=== PATIENT | male | born 1980 | race Caucasian/White ===

== ENCOUNTER 2018-09-18 12:45 | Outpatient (CLI) | payer OTHER ==
--- NOTE | 2018-09-18 15:48 | MRI Report ---
Reason: LOW BACK PAIN Procedure Date: 09/18/2018 Accession Number: [id number] / [id number] Procedure: MRI - Lumbar Spine W/O CPT Code: FULL RESULT: EXAM: MRI LUMBAR SPINE WITHOUT CONTRAST EXAM DATE: 09/18/2018 01:28 PM. CLINICAL HISTORY: LOW BACK PAIN. COMPARISON: None. TECHNIQUE: Multiplanar, multisequence T1-weighted and fluid-sensitive sequences of the lumbar spine from T12 to S1 without contrast. Other: None. FINDINGS: Spinal Canal: The conus terminates at L1. The conus medullaris and cauda equina are unremarkable. Alignment: No scoliosis or spondylolisthesis. Bone Marrow: The numbering scheme in this report is arbitrary. Five lumbar-type vertebrae are assumed to be present for the purposes of the numbering scheme in this report, but cannot be guaranteed to be present. The lowest rib-bearing vertebra cannot be reliably identified. There appears to be a transitional segment at the lumbosacral junction that for the purposes of this report will be defined as L5, but axial images suggest that it is at least partially sacralized or pseudo-sacralized though a fully formed though relatively narrowed disk space is present (defined as L5-S1). No acute marrow edema. Small degenerative Schmorl's node superiorly at L1 and L5. Disk Levels/Facets: T12-L1: Mild to moderate degenerative disk disease. Anterior marginal spurring. Minimal circumferential disk bulge, but no focal extrusion or stenosis. L1-L2: Unremarkable. L2-L3: Unremarkable. L3-L4: Unremarkable. L4-L5: Moderate degenerative disk disease. Circumferential disk bulge. Additional more focal midline posterior disk protrusion with ventral thecal sac indentation, but no nerve root compression or significant canal stenosis. Minimal marginal spurring. Mildly narrowed foramina, but no intraforaminal nerve root compression. Minimal if any facet arthropathy. L5-S1: No disk extrusion or stenosis. Transitional-appearing segment, defined for this report as L5. Chronic concavity and irregularity of the upper anterior corner of the arbitrarily defined S1 body consistent with chronic degenerative irregularity or small Schmorl's node. Musculature: Normal. No edema or fatty atrophy. Other: The partially visualized retroperitoneum is unremarkable. IMPRESSION: 1. Arbitrary numbering scheme. Transitional-appearing anatomy at the lumbosacral junction. 2. Degenerative changes are most prominent at L4-L5 and T12-L1, but there is no evidence for significant stenosis or focal nerve root compression. Comment: The following findings are so common in adults without low back pain that while we report their presence, they must be interpreted with caution and in the context of the clinical situation. (Reference Robson et al, Spine 2001) Prevalence of findings in patients without low back pain: Disk degeneration (any evidence): 92% Disk desiccation/T2 signal loss: 83% Disk height loss: 56% Disk bulge: 64% Disk protrusion: 32% Annular tear/high intensity zone: 38% RADIA
== END 2018-09-18 12:46 | disposition home or self-care (01) ==
LOC: DI 12:45
PROVIDERS: ATTEND Radiology Diagnostic Radiology
DX: M51.36 Other intervertebral disc degeneration, lumbar region (principal); M51.35 Other intervertebral disc degeneration, thoracolumbar region
CPT/HCPCS: 72148

== ENCOUNTER 2019-03-19 09:53 | Outpatient (CLI) | payer OTHER | END 2019-03-19 09:54 | disposition home or self-care (01) | LOC: SC 09:53 | PROVIDERS: ATTEND Internal Medicine Pulmonary Disease | DX: R06.83 Snoring (principal); G47.8 Other sleep disorders; G47.10 Hypersomnia, unspecified; E66.9 Obesity, unspecified; Z68.30 Body mass index [BMI] 30.0-30.9, adult | CPT/HCPCS: 99203; 99212 ==

== ENCOUNTER 2019-05-13 20:29 | Outpatient (CLI) | payer OTHER | END 2019-05-13 20:30 | disposition home or self-care (01) | LOC: SC 20:29 | PROVIDERS: ATTEND Internal Medicine Pulmonary Disease | DX: G47.33 Obstructive sleep apnea (adult) (pediatric) (principal); G47.61 Periodic limb movement disorder | CPT/HCPCS: 95810 ==

== ENCOUNTER 2019-05-27 14:17 | Outpatient (CLI) | payer OTHER ==
--- NOTE | 2019-05-27 15:05 | SLEEP CARE CONSULTATION ---
Information from patient questionnaire entered by Kim Pizarro. I have reviewed and concur with the information entered by Kim Pizarro. This document represents the service I personally performed and the decisions made by me, Bella Rodríguez MD, [facility] [place] History of Present Illness Initial [place] Sleepiness Scale score: 15 Current [place] Sleepiness Scale score: 14 Additional HPI information: HPI: Mr. Mir returned for follow up of the sleep study he had on 05/13/2019. The polysomnography showed that the patient had normal sleep efficiency. The sleep architecture was relatively normal as well considering the first night effect.. Respiratory monitoring showed mild obstructive sleep apnea- hypopnea (AHI = 5.8) associated with oxyhemoglobin desaturation and mild hypoxia (dave oxygen saturation of 88%) but not sleep fragmentation. The respiratory events occurred almost exclusively during supine sleep (supine AHI = 33.1; non- supine = 2.50). Snore was moderate to loud in intensity. There was moderate periodic leg movement of sleep not associated with sleep fragmentation. Cardiac rhythm was normal sinus rhythm without significant arrhythmia. No abnormal behavior (parasomnia) observed during the night. The patient was informed of these findings. I explained to him the pathophysiology behind obstructive sleep apnea. We then spent quite a bit of time discussing different treatment options. For mild obstructive sleep apnea, surgery and oral appliance are alternatives to nasal CPAP therapy but in moderate or severe cases, nasal CPAP is the most effective and reliable treatment. Weight loss in an obese individual is strongly recommended. After some discussion, he opted to go with the nasal CPAP therapy. I explained to him how CPAP machine works and what to expect when using the machine. Allergies and Home Medications Home medication list reviewed: Yes Review of Systems Review of systems same as previous: Yes Impression and Plan IMPRESSION: 1. Obstructive Sleep Apnea-Hypopnea Syndrome, mild, and positional. Possibly, this is the cause of the patients symptoms of unrefreshed sleep, and excessive daytime sleepiness. As mentioned above, the patient will return for a manual CPAP/BiPAP titration study. PLAN: 1. Schedule a manual CPAP/BiPAP titration study. 2. Avoid alcohol consumption near bedtime. 3. Avoid sleeping supine for the time being. 4. Return for follow up after the sleep study. I spent 100% of this 15 minute visit face to face with the patient with greater than 50% of this was spent time counseling the patient and coordination of care.
== END 2019-05-27 14:18 | disposition home or self-care (01) ==
LOC: SC 14:17
PROVIDERS: ATTEND Internal Medicine Pulmonary Disease
DX: G47.33 Obstructive sleep apnea (adult) (pediatric) (principal)
CPT/HCPCS: 99212; 99213

== ENCOUNTER 2019-06-10 20:44 | Outpatient (CLI) | payer OTHER | END 2019-06-10 20:45 | disposition home or self-care (01) | LOC: SC 20:44 | PROVIDERS: ATTEND Internal Medicine Pulmonary Disease | DX: G47.33 Obstructive sleep apnea (adult) (pediatric) (principal); G47.61 Periodic limb movement disorder | CPT/HCPCS: 95811 ==

== ENCOUNTER 2019-07-15 09:40 | Outpatient (CLI) | payer OTHER ==
--- NOTE | 2019-07-15 10:22 | SLEEP CARE CONSULTATION ---
Information from patient questionnaire entered by Kim Pizarro. I have reviewed and concur with the information entered by Kim Pizarro. This document represents the service I personally performed and the decisions made by me, Bella Rodríguez MD, [facility]. History of Present Illness Initial [place] Sleepiness Scale score: 15 Current [place] Sleepiness Scale score: 12 Additional HPI information: HPI: Mr. Mir returns for follow up of the sleep study (a manual CPAP titration study) he had on 06/10/2019. The polysomnography showed that CPAP was initiated at 5 cmH2O and titrated up to CPAP at 9 cmH2O. CPAP at 8 cmH2O appeared to be optimal (AHI of 0.4 per hour on the pressure). There was supine REM sleep on the pressure. Oxygen saturation was normal throughout the night. Lower CPAP settings also appeared adequate. The patient tolerated positive airway pressure therapy very well. The patients sleep efficiency was normal. The sleep architecture was normal as well. There was mild periodic limb movement of sleep not associated with sleep fragmentation. Cardiac rhythm was normal sinus rhythm without significant arrhythmia. No abnormal behavior (parasomnia) observed during the night. Mask used was a Respironics Dreamwear Wisp nasal mask. The patient was informed of these findings. The patient has not yet been started on positive airway pressure therapy. Allergies and Home Medications Drug allergies reviewed: Yes Home medication list reviewed: Yes Review of Systems Review of systems same as previous: Yes Physical Exam Height: 6 ft 3 in Weight: 244 lb Body Mass Index: 30.4 BMI Classification: Obesity Class 1 Impression and Plan IMPRESSION: 1. Obstructive Sleep Apnea-Hypopnea Syndrome, mild (AHI was 5.8), adequately controlled with CPAP of 8 cmH2O. So Based on the titration study, I will start him on an autoCPAP set between 5 and 9 cmH2O. I anticipate good treatment compliance. 2. Periodic leg movement of sleep, mild. The patient attributes it to his back injury and is awaiting treatment. PLAN: 1. Prescription made for an autoCPAP, heated humidifier, and related supplies. The patient will try a Respironics DreamWear nasal cushion mask. 2. Attempt to lose some weight. 3. Return for follow up after one month on the new machine. I spent 100% of the 15 minute visit [id number] with the patient with greater than 50% of this was spent time counseling the patient and coordination of care.
== END 2019-07-15 09:41 | disposition home or self-care (01) ==
LOC: SC 09:40
PROVIDERS: ATTEND Internal Medicine Pulmonary Disease
DX: G47.33 Obstructive sleep apnea (adult) (pediatric) (principal); G47.61 Periodic limb movement disorder; E66.9 Obesity, unspecified; Z68.30 Body mass index [BMI] 30.0-30.9, adult
CPT/HCPCS: 99212; 99213

== ENCOUNTER 2019-09-15 12:57 | Emergency (ER) | payer OTHER ==
--- NOTE | 2019-09-15 15:05 | ED Physician Documentation ---
History of Present Illness - Stated complaint Stated Complaint: HEADACHE - Chief complaint Chief Complaint: Neuro - Additonal information Additional information: This is a 39-year-old male with history of chronic back pain who presents with a headache. Patient had a steroid injection his L5-S1 region last week, and on he began developing a headache. Headache is in the back of his head, only present when he sits up or stands up. When he lays down it goes away. It started shortly after he had the steroid injection. He denies any fever, confusion, weakness or numbness. He does not typically get headaches. It was gradual in onset and slowly worsened per now he is lying down he has no headache, but when he stands up will come on is moderate in intensity. His steroid injection was done reported in a fluoroscopy guidance at [facility]. Review of Systems Constitutional: denies: Fever : denies: Dysuria Musculoskeletal: reports: Back pain Neurologic: reports: Headache PD PAST MEDICAL HISTORY - Past Medical History Past Medical History: No Musculoskeletal: Chronic back pain - Past Surgical History Past Surgical History: No - Present Medications Home Medications: Ambulatory Orders Medication Instructions Recorded Confirmed Butalb/Acetaminophen/Caffeine 1 - 2 each PO Q6H PRN #15 tablet 09/15/19 [Uoxjsd-Wckgvola-Cptm 50-325-40] Metoclopramide [Reglan] 10 mg PO Q8H PRN #10 tablet 09/15/19 - Allergies Allergies/Adverse Reactions: Allergies Allergy/AdvReac Type Severity Reaction Status Date / Time Penicillins Allergy Unknown Verified 09/15/19 13:09 - Social History Does the pt smoke?: No Smoking Status: Never smoker Does the pt drink ETOH?: Yes Does the pt have substance abuse?: No - Immunizations Immunizations are current?: Yes PD ED PE NORMAL - Vitals Vital signs reviewed: Yes - General General: Alert and oriented X 3, No acute distress - HEENT HEENT: Atraumatic, PERRL - Neck Neck: Supple, no meningeal sign, No bony TTP - Cardiac Cardiac: RRR - Respiratory Respiratory: No respiratory distress - Abdomen Abdomen: Soft, Non tender, Non distended - Derm Derm: Warm and dry - Extremities Extremities: No deformity - Neuro Neuro: Alert and oriented X 3, academic support specialist 2-12 intact, No motor deficit, No sensory deficit, Normal speech - Psych Psych: Normal mood, Normal affect Results - Vitals Vitals: Oxygen O2 Source Room air PD MEDICAL DECISION MAKING - ED course Complexity details: considered differential (Post-spinal puncture headache, tension headache, migraine, ICH, meningitis) ED course: Pt's headache is very suspicious for post-spinal puncture headache given it started after steroid injections, and resovles with lying down. No signs of infection/meningitis. The gradual onset and nature of the headache make SAH/ICH highly unlikely. He was given fiorcet with some improvement and I discussed trialing medications vs. blood patch. He would like to trial PO meds, and if he is not having improvement he plans to follow up tomorrow with [facility] where he had the procedure to discuss/obtain blood patch. I reviewed return precautions including worsening, neurologic symptoms, or signs of infection and he was discharged home. Departure - Departure Disposition: 01 Home, Self Care Clinical Impression: Headache after spinal puncture Condition: Good Prescriptions: Butalb/Acetaminophen/Caffeine [Nkesli-Jgrnypti-Ohdp 50-325-40] 1 - 2 each PO Q6H PRN #15 tablet PRN Reason: Headache Metoclopramide [Reglan] 10 mg PO Q8H PRN #10 tablet PRN Reason: Nausea / Vomiting Comments: You likely have a post spinal puncture headache, which may been caused by the steroid injection. You may try the Fioricet and you may also use naproxen or ibuprofen in combination with this. If your symptoms are not improving with these medications, I think it would be worthwhile to get a blood patch as we discussed. If you are having worsening headache, or any other concerning symptoms such as fever, confusion, neck stiffness, return to the emergency department immediately. Discharge Date/Time: 09/15/19 16:28
[2019-09-15] MEDS ORDERED: BUTALB/ACETAM/CAFF 50/325/40MG TABLET PO STA (15:54)
[2019-09-15] MEDS ORDERED: KETOROLAC 30 MG/ML VIAL IVP STA (16:00)
[2019-09-15 16:09] VITALS: BP 130/84
== END 2019-09-15 16:28 | disposition home or self-care (01) ==
LOC: ED 12:57
DX: G97.1 Other reaction to spinal and lumbar puncture (principal); M54.9 Dorsalgia, unspecified; G89.29 Other chronic pain
CPT/HCPCS: 96374; 99283; 99284; A9270

== ENCOUNTER 2019-09-16 14:45 | Outpatient (CLI) | payer OTHER ==
--- NOTE | 2019-09-16 15:39 | CT Report ---
Reason: HEADACHE Procedure Date: 09/16/2019 Accession Number: [id number] / [id number] Procedure: CT - HEAD WO CPT Code: Final Report FULL RESULT: EXAM: Head without contrast INDICATION: 39-year-old male. Had a lumbar steroid injection yesterday. Now complains of occipital headache while standing. Concern for hemorrhage. TECHNIQUE: Sequential 5 mm axial images were obtained through the brain. In accordance with CT protocol optimization, one or more of the following dose reduction techniques were utilized for this exam: automated exposure control, adjustment of mA and/or KV based on patient size, or use of iterative reconstructive technique. COMPARISON: None. FINDINGS: There is mild generalized prominence of the cerebral cortical sulci. Ventricular size is normal. The attenuation of the cortex and white matter appears normal throughout. No focal lesion is demonstrated. There is no intracranial hemorrhage or abnormal extra-axial fluid collection. There is no mass effect or midline shift. The skull and skull base are intact. The middle ear cavities and mastoid air cells are well aerated and clear. There is mucosal thickening in a few ethmoid air cells. A small mucous retention cyst is seen in the right chamber of the sphenoid sinus. The imaged paranasal sinuses are otherwise clear. IMPRESSION: Negative unenhanced head CT. No acute intracranial pathology is demonstrated. In particular, there is no intracranial hemorrhage.
== END 2019-09-16 14:46 | disposition home or self-care (01) ==
LOC: DI 14:45
PROVIDERS: ATTEND Physical Medicine & Rehabilitation
DX: G44.52 New daily persistent headache (NDPH) (principal)
CPT/HCPCS: 70450

== ENCOUNTER 2019-10-01 08:38 | Outpatient (CLI) | payer OTHER ==
--- NOTE | 2019-10-01 14:28 | SLEEP CARE CONSULTATION ---
Information from patient questionnaire entered by Kim Pizarro. I have reviewed and concur with the information entered by Kim Pizarro. This document represents the service I personally performed and the decisions made by me, Bella Rodríguez MD, [facility]. History of Present Illness Previous diagnosis: Mild, Obstructive Sleep Apnea-Hypopnea Syndrome AHI: 5.8 Reason for follow up: first compliance Equipment type: CPAP Equipment obtained from: [employer] Prior sleep studies: Yes HPI additional information: HPI: Mr. Mir returned today for follow up of nasal CPAP therapy. He was diagnosed to have mild obstructive sleep apnea-hypopnea syndrome. The patient wears a Respironics DreamWear nasal cushion mask (he prefers it over the Respironics DreamWisp nasal mask we gave him from the sleep lab). He reports using the device nightly and all through the night. The compliance report shows usage in 28 nights out of the past 30 nights, averaging 7.1 hours a night. The > 4 hour compliance rate for the past 30 days is 93.3%. He complained of no particular problem with the device such as soreness on the face, dry nose, epistaxis, nasal congestion or headache. He thinks that the pressure is comfortable. On the CPAP therapy he notices improvement in his sleep quality, and that he wakes up feeling fresher in the morning and more awake/alert during the day. His notices no snore at all. The average residual AHI is 1.9; and average time in large leak per day is 2 minutes. The 90th percentile pressure is 7.9 cmH2O. Subjective Current pressure setting perceived as: comfortable Initial [place] Sleepiness Scale score: 15 Current [place] Sleepiness Scale score: 7 Allergies and Home Medications Drug allergies reviewed: Yes Home medication list reviewed: Yes Review of Systems Review of systems same as previous: Yes Physical Exam Weight: 243 lb Impression and Plan IMPRESSION: 1. Obstructive Sleep Apnea-Hypopnea Syndrome, mild, with the patient doing well on nasal CPAP therapy. He has excellent compliance and significant clinical improvement. The current pressure appears effective and comfortable. Overall, he is very satisfied with treatment and plans to continue with it long-term. No adjustment is necessary today. PLAN: 1. Continue with autoCPAP set at 5 - 9 cmH2O. 2. Try to lose weight 3. Try ResMed N30i mask. 4. Return in one year for follow up or earlier if there is any problem with the treatment. I spent 100% of this visit face to face with the patient with greater than 50% of this was spent time counseling the patient and coordination of care.
== END 2019-10-01 08:39 | disposition home or self-care (01) ==
LOC: SC 08:38
PROVIDERS: ATTEND Internal Medicine Pulmonary Disease
DX: G47.33 Obstructive sleep apnea (adult) (pediatric) (principal)
CPT/HCPCS: 99212; 99213

== ENCOUNTER 2020-08-25 07:51 | Outpatient (CLI) | payer OTHER ==
--- NOTE | 2020-08-26 11:26 | MRI Report ---
PROCEDURE: Knee RT W/O INDICATIONS: RT KNEE PAIN TECHNIQUE: Noncontrast sagittal PD fast spin echo and T2 fast spin echo with fat saturation, sagittal 3-D gradie nt sequence with fat saturation; coronal T1 spin echo and PD fast spin echo with fat saturation, and axial PD fast spin echo with fat saturation through the knee. COMPARISON: None. FINDINGS: Image quality: Excellent. Menisci: Complex tear involving posterior horn of medial meniscus is seen extending to inferior artic ulating surface. There is no focal lateral meniscal tear. The meniscal root ligaments appear intact. Cruciate ligaments: The anterior and posterior cruciate ligaments appear intact. Medial structures: The medial collateral ligament appears intact. The posterior oblique ligament, s emimembranosus tendon insertions, and oblique popliteal ligament, and meniscocapsular junction appear intact. Visualized portions of the pes anserinus tendons appear normal. No abnormal bursal fluid. Lateral structures: The lateral collateral ligament, long and short heads of the biceps femoris tend on appear intact. The popliteus tendon appears normal; the popliteofibular ligament appears intact. The posterosuperior and anteroinferior popliteomeniscal fascicles appear intact. The arcuate and fa bellofibular ligaments appear intact, around the lateral inferior geniculate artery. Iliotibial band appears normal. Anterior structures: The quadriceps and patellar tendons appear intact. Patellar alignment is grace l. No femoral trochlear dysplasia or ventral trochlear prominence. No edema in the infrapatellar fa t pad. Bones and cartilage: No bone marrow contusions or fractures. The cartilage of the medial and latera l femorotibial compartments, as well as the patellofemoral compartment, appears normal in thickness. Joint space: There is small knee joint fluid. No Velazquez?s cyst. Normal appearing synovial plicae ar e incidentally noted. IMPRESSION: 1. Complex tear involving posterior horn of medial meniscus extending to inferior articulating surfac e. No evidence of focal lateral meniscal tear. 2. Cruciate ligaments are intact. 3. No fracture or dislocation. No marrow edema. Small joint effusion. No gross loose body. Reviewed by: Boy Alarcon MD on 08/26/2020 10:25 AM [facility] Approved by: Boy Alarcon MD on 08/26/2020 10:25 AM [facility] Station ID: [id number]
== END 2020-08-25 07:52 | disposition home or self-care (01) ==
LOC: DI 07:51
PROVIDERS: ATTEND Student in an Organized Health Care Education/Training Program
DX: S83.231A Complex tear of medial meniscus, current injury, right knee, initial encounter (principal); M25.461 Effusion, right knee

== ENCOUNTER 2020-09-28 13:55 | Outpatient (CLI) | payer OTHER ==
--- NOTE | 2020-09-28 09:38 | SLEEP CARE CONSULTATION ---
Information from patient questionnaire entered by Anayeli Fitzgerald. I have reviewed and concur with the information entered by Anayeli Fitzgerald. This document represents the service I personally performed and the decisions made by me, Bella Rodríguez MD, [facility]. History of Present Illness Service Date and Time: 09/28/2020919 Previous diagnosis: Mild, Obstructive Sleep Apnea-Hypopnea Syndrome AHI: 5.8 (in 2019) Reason for follow up: annual (last seen 09/2019) Equipment type: CPAP Equipment obtained from: [employer] Mask style: Nasal Mask brand: Respironics [facility]: Yes [facility] Type of Sleep Study: Polysomnography HPI additional information: To minimize the risk of COVID-19 exposure, the patient has requested and consented to this telephone visit. The patient also agrees to having his insurance billed. HPI: Mr. Mir returned today for annual follow up of nasal CPAP therapy. He was diagnosed to have mild obstructive sleep apnea-hypopnea syndrome. He gets his supplies from [employer]. The patient wears a Respironics DreamWear nasal cushion mask (he prefers it over the Respironics DreamWisp nasal mask we gave him from the sleep lab). He reports using the device nightly and all through the night. The compliance report shows usage in 178 nights out of the past 180 nights, averaging 6.4 hours a night. The > 4 hour compliance rate for the past 180 days is 94.4%. He complained of no particular problem with the device such as soreness on the face, dry nose, epistaxis, nasal congestion or headache. He thinks that the pressure of 5 9 cmH2O is comfortable. On the CPAP therapy he notices improvement in his sleep quality, and that he wakes up feeling fresher in the morning and more awake/alert during the day. His notices no snore at all. The average residual AHI is 1.2; and average time in large leak per day is 2 minutes. The 90th percentile pressure is 6.4 cmH2O. CPAP Compliance Data - Data Reviewed with Patient Average duration of nightly device use: 6 hr 27 min Compliance rate %: 94.4 (180 days) Current pressure setting (cmH2O): 5-9 Humidity settin Heated hose settin Average residual AHI: 1.1 Average large leak: 1 min 53 sec Subjective Initial [place] Sleepiness Scale score: 15 (in 2019) Allergies and Home Medications Drug allergies reviewed: Yes Home medication list reviewed: Yes Review of Systems Review of systems same as previous: Yes Physical Exam Height: 6 ft 4 in Weight: 225 lb Weight change since last visit: -18 Body Mass Index: 27.3 BMI Classification: Overweight Impression and Plan IMPRESSION: 1. Obstructive Sleep Apnea-Hypopnea Syndrome, mild, with the patient continuing to do well on nasal CPAP therapy. He has excellent compliance and significant clinical improvement. The current pressure appears effective and comfortable. Overall, he is very satisfied with treatment and plans to continue with it long- term. No adjustment is necessary today. PLAN: 1. Continue with autoCPAP set at 5 - 9 cmH2O. 2. Try to lose more weight 3. Try ResMed N30i mask. 4. Return in one year for follow up or earlier if there is any problem with the treatment. 5. Consider repeating the in-laboratory polysomnography with more weight loss. Visit Type: Telehealth Video Video Type: Nicole Patient Location: Home Location of Provider: Office Patient agrees and consents to this telehealth visit type: Yes Patient agrees to have their insurance billed: Yes Time Spent with Patient (minutes): 12 Provider Statement: I spent 100% of the Telehealth Video Call with the patient with greater than 50% spent counseling the patient and coordination of care.
== END 2020-09-28 13:56 | disposition home or self-care (01) ==
LOC: SC 13:55
PROVIDERS: ATTEND Internal Medicine Pulmonary Disease
DX: G47.33 Obstructive sleep apnea (adult) (pediatric) (principal); E66.3 Overweight; Z68.27 Body mass index [BMI] 27.0-27.9, adult

== ENCOUNTER 2020-10-27 10:01 | Day surgery (SDC) | payer OTHER ==
[~2020-10-27 10:01] MED LIST: LACTATED RINGERS 1,000 ML IV ONE; ceFAZolin 2 GM/50 ML 2 GM/50 ML BAG IV ONE
[2020-10-27] MEDS ORDERED: EPINEPHrine 1 MG/ML AMP ONE (10:43)
[2020-10-27] MEDS ORDERED: BUPIVACAINE 0.25% PF 10 ML VIAL ONE (10:44)
[2020-10-27] MEDS ORDERED: LIDOCAINE-MPF 2% 5 ML VIAL ONE (11:15)
[2020-10-27] MEDS ORDERED: PROPOFOL 200 MG/20 ML VIAL IVP ONE (11:15)
[2020-10-27] MEDS ORDERED: fentaNYL 100 MCG/2 ML VIAL ONE (11:42)
[2020-10-27] MEDS ORDERED: DEXAMETHASONE 4 MG/ML VIAL ONE (11:43)
[2020-10-27] MEDS ORDERED: ONDANSETRON 4 MG/2 ML VIAL ONE (11:43)
[2020-10-27] MEDS ORDERED: BUPIVACAINE 0.25% PF 30 ML VIAL SUBQ ONE (11:52)
[2020-10-27] MEDS ORDERED: NALOXONE 0.4 MG/ML VIAL IVP PRN (12:16)
[2020-10-27] MEDS ORDERED: ONDANSETRON 4 MG/2 ML VIAL IVP PRN ×2 (12:16→12:38)
[2020-10-27] MEDS ORDERED: ePHEDrine 50 MG/ML VIAL IVP PRN (12:16)
[2020-10-27] MEDS ORDERED: HYDROmorphone 0.5 MG/0.5 ML SYRINGE IVP PRN (12:16)
[2020-10-27] MEDS ORDERED: METOCLOPRAMIDE 10 MG/2 ML VIAL IVP PRN (12:16)
[2020-10-27] MEDS ORDERED: MORPHINE 2 MG/ML CARPUJECT IVP PRN (12:16)
[2020-10-27] MEDS ORDERED: fentaNYL 100 MCG/2 ML VIAL IVP PRN (12:16)
[2020-10-27] MEDS ORDERED: ATROPINE ABBOJECT 1 MG/10 ML SYRINGE IVP PRN (12:16)
--- NOTE | 2020-10-27 12:16 | ANESTHESIA ---
Pre-Anesthesia VS, & Labs - Diagnosis Right knee pain - Procedure Right knee arthroscopy Vital Signs: Temp Pulse Resp BP Pulse Ox 36.1 C L 68 16 134/92 H 99 10/27/20 10:05 10/27/20 10:05 10/27/20 10:05 10/27/20 10:05 10/27/20 10:05 Height: 6 ft 4 in Weight (kg): 102.06 kg Body Mass Index: 27.3 BMI Classification: Overweight - NPO >8 hours Home Medications and Allergies Home Medications: Ambulatory Orders Fluticasone [Flonase] 1 sprays JERRI DAILY 10/21/20 Fluticasone [Flonase] 1 sprays JERRI DAILY 10/21/20 Allergies/Adverse Reactions: Allergies Allergy/AdvReac Type Severity Reaction Status Date / Time Penicillins Allergy Unknown Verified 10/27/20 10:51 Anes History & Medical History - Anesthetic History Anesthesia Complications: reports: No previous complications Family history of Anesthesia Complications: Denies - Medical History Cardiovascular: reports: None Pulmonary: reports: Sleep apnea, CPAP use Gastrointestinal: reports: None Urinary: reports: None Musculoskeletal: reports: Chronic back pain Endocrine/Autoimmune: reports: None Skin: reports: None Smoking Status: Never smoker Exam General: Alert, Cooperative Dental: WNL Mouth Openin Fingerbreadth Neck Mobility: Normal Mallampati classification: I Thyromental Distance: greater than 6 cm Respiratory: Lungs clear Cardiovascular: Regular rate, Normal S1, Normal S2, No murmurs Cognitive Status: Within normal limits Plan Anesthesia Type: General Consent for Procedure(s) Verified and Reviewed: Yes Code Status: Attempt Resuscitation ASA classification: 1-Healthy patient Is this case an emergency?: No
[2020-10-27] MEDS ORDERED: KETOROLAC 30 MG/ML VIAL ONE (12:21)
[2020-10-27] MEDS ORDERED: LACTATED RINGERS 1,000 ML IV ONE (12:21)
[2020-10-27] MEDS ORDERED: oxyCODONE 5 MG TABLET PO PRN (12:38)
--- NOTE | 2020-10-27 12:48 | OPERATIVE REPORT ---
Operative Report - Other Other Information/Narrative: Date of Surgery: 27 October 2020 Pre-Op Diagnosis: Right knee medial meniscus tear Procedure: Right knee arthroscopic medial meniscus debridement Postop Diagnosis: Same Primary Surgeon: Kirt Schneider Secondary Surgeon: None Complications: None Tourniquet Time: 29 minutes EBL: 5 mL Postoperative plan: No impact activities for 6 weeks. For range of motion strengthening immediately. Weightbearing as tolerated. Indication For Surgery: 40-year-old male sustained an injury to his right knee while playing tennis in January. His pain and mechanical symptoms have persisted despite conservative treatment. The MRI showed a displaced meniscal tear. He would like to proceed with surgery. The risks, benefits, and alternatives were discussed. Risks include pain, bleeding, infection, damage to nearby structures and cartilage, lack of symptom relief, need for further surgery, DVT, PE, stroke, and . Written consent was obtained. Examination Under Anesthesia: ROM equal to the contralateral side. Stable dial at 30 & 90 degrees. Stable to varus and valgus stressing at 0 & 30 degrees. Normal Jose Luis. Normal Pivot shift. No mechanical sensation Arthroscopic Findings: Loose bodies -none Synovium -normal Patella cartilage -normal Trochlear cartilage -normal Medial femoral condyle cartilage -normal Medial tibial plateau cartilage -normal Medial meniscus -complex tear of the posterior horn with a radial component and horizontal component. The anterior portion of the root had a balled up the loose piece that had torn from the posterior horn. I debrided all unstable pieces of meniscus and smooth at all borders. The inferior leaflet had some ossification. Anterior cruciate ligament -normal Posterior cruciate ligament -normal Lateral femoral condyle cartilage -normal Lateral tibial plateau cartilage -normal Lateral meniscus -normal Procedure in Detail: The patient was met in the pre-operative hold area on the day of the procedure. The operative extremity was signed and questions were answered. The patient was brought to the operating room and a general anesthetic was administered. Supine position was used and bony prominences were padded. An examination under anesthesia was performed. Standard prepping and draping was performed. A time out confirmed patient identification, laterality, procedure, allergies, antibiotics, and images. An Esmarch was used to exsanguinate the limb and the tourniquet was elevated to 250 mmHg. A standard diagnostic arthroscopy of the knee was performed through anterolateral and anteromedial portal sites. The anteromedial portal was created under direct visualization after localizing with a spinal needle. The findings can be found above. I then proceeded to debride all unstable portions of the medial meniscus using a biters and andi. I smoothed it back to healthy tissue, preferentially taking the inferior leaflet. All transition points were smoothed nicely. Final images were taken and all arthroscopic fluid and instruments were removed from the knee. The incisions were closed with buried monocryl sutures. Steri strips were applied. 20 cc of 0.25% Marcaine without epinephrine was injected near the portal sites. A sterile dressing and compression stocking was placed. The patient was awakened and transferred to recovery in stable condition.
[2020-10-27] MEDS ORDERED: LACTATED RINGERS 1,000 ML IV SCH (13:00)
[2020-10-27 13:10] VITALS: BP 119/81
[2020-10-27] MEDS ORDERED: oxyCODONE 5 MG TABLET ONE (13:12)
--- NOTE | 2020-10-27 14:43 | ANESTHESIA POST OP EVALUATION ---
Anesthesia Post Eval - Post Anesthesia Eval Vitals: Last Vital Signs Temp 36.1 C L 10/27/20 13:10 Pulse 77 10/27/20 13:10 Resp 19 10/27/20 13:10 BP 119/81 H 10/27/20 13:10 Pulse Ox 97 10/27/20 13:10 CV Function Including HR & BP: positive: Stable Pain Control: positive: Satisfactory Nausea & Vomiting: positive: Negative Mental Status: positive: Baseline Respiratory Status: Airway Patent Hydration Status: Satisfactory Anesthesia Complications: positive: None
== END 2020-10-27 10:02 | disposition home or self-care (01) ==
LOC: SDS 10:01
PROVIDERS: ATTEND Orthopaedic Surgery
DX: S83.231A Complex tear of medial meniscus, current injury, right knee, initial encounter (principal); M17.11 Unilateral primary osteoarthritis, right knee; E66.3 Overweight; Z68.27 Body mass index [BMI] 27.0-27.9, adult; G47.30 Sleep apnea, unspecified
CPT/HCPCS: 29881; A9270; J0690; J7120

== ENCOUNTER 2021-01-02 09:56 | Emergency (ER) | payer OTHER ==
[2021-01-02 10:07] VITALS: BP 128/84
--- NOTE | 2021-01-02 10:22 | ED Physician Documentation ---
PD HPI UPPER EXT INJURY - Stated complaint Stated Complaint: RIGHT FINGER INJ - Chief complaint Chief Complaint: Laceration - History obtained from History obtained from: Patient - History of Present Illness Location: Right, Finger (middle) Type of injury: Laceration Where injury occurred: Home Timing - onset: Today Timing - duration: Minutes Timing - details: Abrupt onset, Still present Improved by: Rest, Dressing Worsened by: Moving, Palpating Associated symptoms: No: Weakness, Numbness, Tingling, Swelling, Discolored Similar symptoms before: Diagnosis (skin skiv) Recently seen: Not recently seen - Additonal information Additional information: 40-year-old male was using a mandolin to cut carrots when he cut the dorsal surface of the right PIP knuckle on the middle finger on the dorsal surface. Is able to control the bleeding with direct pressure comes in now for evaluation. He is active [employer] and up-to-date on his immunizations. Review of Systems Constitutional: denies: Fever Ears: denies: Ear pain Nose: denies: Congestion Respiratory: denies: Cough GI: denies: Vomiting PD PAST MEDICAL HISTORY - Past Medical History Musculoskeletal: Chronic back pain - Past Surgical History Past Surgical History: No - Present Medications Home Medications: Ambulatory Orders Medication Instructions Recorded Confirmed Fluticasone [Flonase] 1 sprays JERRI DAILY 10/21/20 10/27/20 - Allergies Allergies/Adverse Reactions: Allergies Allergy/AdvReac Type Severity Reaction Status Date / Time Penicillins Allergy Unknown Verified 01/02/21 10:08 - Social History Does the pt smoke?: No Smoking Status: Never smoker Does the pt drink ETOH?: Yes Does the pt have substance abuse?: No - Immunizations Immunizations are current?: Yes PD ED PE NORMAL - Vitals Vital signs reviewed: Yes (Hypertensive) - General General: Alert and oriented X 3, No acute distress, Well developed/nourished - HEENT HEENT: Atraumatic, PERRL, EOMI - Respiratory Respiratory: No respiratory distress - Derm Derm: Normal color, Warm and dry, No rash - Extremities Extremities: Other (There is a skin of of skin missing from the dorsum of the right middle finger. This does not involve any deeper structures and the size is approximately 7 mm x 1.2 cm.) - Neuro Neuro: Alert and oriented X 3, lining baster 2-12 intact, No motor deficit, No sensory deficit, Normal speech Eye Opening: Spontaneous Motor: Obeys Commands Verbal: Oriented GCS Score: 15 - Psych Psych: Normal mood, Normal affect Results - Vitals Vitals: Vital Signs - 24 hr 01/02/21 09:58 Temperature 36.6 C Heart Rate 88 Respiratory 16 Rate Blood Pressure 128/84 H O2 Saturation 99 Oxygen O2 Source Room air PD MEDICAL DECISION MAKING - ED course Complexity details: considered differential, d/w patient ED course: 40-year-old male with a skin of of skin missing from the dorsum of the right middle finger is treated conservatively with a dressing and he is up-to-date on his tetanus. Departure - Departure Disposition: 01 Home, Self Care Clinical Impression: Avulsion of skin of finger Qualifiers: Encounter type: initial encounter Qualified Code(s): S61.209A - Unspecified open wound of unspecified finger without damage to nail, initial encounter Condition: Stable Instructions: ED Avulsion Dermal Follow-Up: JERRI Anderson [Provider Group]
== END 2021-01-02 10:40 | disposition home or self-care (01) ==
LOC: ED 09:56
DX: S61.212A Laceration without foreign body of right middle finger without damage to nail, initial encounter (principal); W26.8XXA Contact with other sharp object(s), not elsewhere classified, initial encounter; Y93.G1 Activity, food preparation and clean up; Y92.009 Unspecified place in unspecified non-institutional (private) residence as the place of occurrence of the external cause
CPT/HCPCS: 99281; 99282

== ENCOUNTER 2021-10-06 14:19 | Outpatient (CLI) | payer OTHER ==
[2021-10-06 14:56] VITALS: BP 141/88
--- NOTE | 2021-10-06 14:56 | SLEEP CARE CONSULTATION ---
Information from patient questionnaire entered by Dee Dee Garzon MA. I have reviewed and concur with the information entered by Dee Dee Garzon MA. This document represents the service I personally performed and the decisions made by , Kimberly Frausto ARNP. History of Present Illness Service Date and Time: 10/06/2021 1419 Previous diagnosis: Mild, Obstructive Sleep Apnea-Hypopnea Syndrome AHI: 5.8 (in 2018) Reason for follow up: annual (LAST SEEN 09/2020) Equipment type: CPAP Equipment obtained from: [employer] (getting supplies) Mask style: Nasal Backup mask available: Yes (old mask) Prior [facility]: Yes [facility] Type of Sleep Study: Polysomnography HPI additional information: ADINA NELSON was diagnosed to have mild, AHI 5.8, obstructive sleep apnea- hypopnea syndrome and returned today for CPAP therapy annual follow-up. Patient has CPAP on recall. Sleep Study - Results Type of Sleep Study: Polysomnography Prior sleep studies: Yes [facility] and [facility] CP[facility] Compliance Data - Data Reviewed with Patient Average duration of nightly device use: 5 hours 20 minutes Compliance rate %: 78.9 Current pressure setting (cmH2O): 5-9 Humidity settin Heated hose settin Average residual AHI: 1.0 Central apnea: 0.1 Obstructive apnea: 0.2 Average large leak: 1 mins. 12 secs. Compliance data discussion: Patient has not been consistently using his CPAP due to the recall on his CPAP machine. Subjective Missed days of use due to: reports: other (recall) Patient concerns: denies: aerophagia, mask discomfort, air blowing in eyes, mask leak noise, condensation in mask/hose, nasal congestion, dry mouth, nose, throat, epistaxis, other Observed to snore while using device: No Current pressure setting perceived as: comfortable On therapy, patient: reports: sleeping better, awakening more refreshed, being more awake and alert during the day, more rested overall. denies: drowsiness while driving Initial [place] Sleepiness Scale score: 15 (in 2018) Current [place] Sleepiness Scale score: 11 (2020) Allergies and Home Medications Known drug allergies: Yes (PCN) Drug allergies reviewed: Yes Home medication list reviewed: Yes (no changes) Review of Systems Review of systems same as previous: Yes (no changes) Physical Exam Vital signs obtained and entered by: JEANETTE PAVON Blood Pressure: 141/88 (left) Cuff size: wrist Heart Rate: 73 O2 Saturation: 98 (clothe mask) Height: 6 ft 4 in Weight: 230 lb (with clothes) Body Mass Index: 28.0 BMI Classification: Overweight Impression and Plan 1. Obstructive Sleep Apnea-Hypopnea Syndrome, mild, with good treatment compliance and good apnea control. On CPAP therapy, the patient has better sleep quality and is more rested overall. Patient has a Dreamstation. Patient has already registered their device for the recall. Patient denies any black particles seen in machine or hoses, any unusual odors coming from device. Patient has not experienced any physical symptoms such as upper airway irritation, headache, skin or eye irritation, asthma, nausea/vomiting, difficulty breathing or chest pain. If patient is not able to sleep due to waking up choking, gasping for air or other respiratory distress that they may decide to continue using it until it is either replaced or repaired. Patient has [employer] insurance. He contacted them and they told him they would replace his recalled machine but he would need to come in to see his sleep provider for the order. I will order a replacement device and then follow up with patient a month after he obtains the new machine. Patient is also still wanting to try the mask that Dr. Russell recommended on his last visit. This was the ResMed N30i. I will add this to his order for him to be able to try it. Patient voiced understanding and agreement with plan. Patient's apnea severity and rationale for treatment to reduce apnea, improve sleep quality and reduce cardiovascular and cerebrovascular events was reviewed. Patient was advised to try to lose weight for his overall health and to reduce apneas. * Continue auto CPAP pressure at 5-9 cmH2O * Replacement device for his Dreamstation on recall * Try the ResMed N30i mask * Notify me if snoring with mask or feeling that the pressure is too much or too little * Attempt to lose weight * Call this office if any problems using CPAP * Return for follow up one month after obtaining new device, or sooner if concerns arise Counseling Topics: Spare mask, Weight loss health impact Visit Type: In Office Time Spent with Patient (minutes): 21 Provider Statement: I spent 100% of the Face to Face Visit with the patient with greater than 50% spent counseling the patient and coordination of care.
== END 2021-10-06 14:20 | disposition home or self-care (01) ==
LOC: SC 14:19
PROVIDERS: ATTEND Nurse Practitioner Family
DX: G47.33 Obstructive sleep apnea (adult) (pediatric) (principal)
CPT/HCPCS: 99212; 99213

== ENCOUNTER 2023-08-31 14:46 | Outpatient (CLI) | payer OTHER ==
--- NOTE | 2023-08-31 15:31 | Sleep Patient Instructions ---
Sleep Center Visit Summary - Patient Visit Information Reason for Visit: Annual Visit - Patient Instructions Additional Instructions: You will continue with CPAP therapy with pressure set at 5-9 cmH2O. A supply prescription will be updated with your DME. We encourage you to continue to try to lose weight. Please follow up with the sleep care office in 1 year. - Clinic Information Contact: [facility] [address] [place] [address] [email or web address] T: [phone]
--- NOTE | 2023-08-31 15:34 | SLEEP CARE CONSULTATION ---
Information from patient questionnaire entered by Matthew Toure. I have reviewed and concur with the information entered by Matthew Toure. This document represents the service I personally performed and the decisions made by me, Kimberly Frausto ARNP. History of Present Illness Service Date and Time: 08/31/2023 1446 Previous diagnosis: Mild, Obstructive Sleep Apnea-Hypopnea Syndrome AHI: 5.8 (in 2019) Reason for follow up: annual (LAST SEEN 09/2021) Equipment type: CPAP (Dreamstation recertified; SD CARD NEEDED) Equipment obtained from: [employer] (getting supplies) Mask style: Nasal Mask brand: Respironics (Dreamwear, large cushion) Backup mask available: Yes Last cushion change: last month [facility]: [facility] Type of Sleep Study: Pol[facility] HPI additional information: ADINA NELSON was diagnosed to have mild, AHI 5.8, obstructive sleep apnea- hypopnea syndrome and returned today for CPAP therapy annual follow-up. Sleep Study - Results Type of Sleep Study: Polysomnography Prior sleep studies: Yes [facility] Compliance Data - Data Reviewed with Patient Average duration of nightly device use: 5 hours 1 minute Compliance rate %: 88.3 (176/180 days used) Current pressure setting (cmH2O): 5-9 Average residual AHI: 0.9 Central apnea: 0.1 Obstructive apnea: 0.3 Hypopnea: 0.5 Average large leak: 20 secs Subjective Missed days of use due to: reports: travel Patient concerns: reports: other (air blows out front, makes spouse unhappy). denies: aerophagia, mask discomfort, air blowing in eyes, mask leak noise, condensation in mask/hose, nasal congestion, dry mouth, nose, throat, epistaxis Observed to snore while using device: No Current pressure setting perceived as: comfortable On therapy, patient: reports: sleeping better, awakening more refreshed, being more awake and alert during the day, more rested overall. denies: drowsiness while driving Initial [place] Sleepiness Scale score: 15 (in 2019) Current [place] Sleepiness Scale score: 13 (08/31/2023) Allergies and Home Medications Known drug allergies: Yes (as listed) Drug allergies reviewed: Yes Home medication list reviewed: Yes (no changes) Allergy and home medication list: Allergies Penicillins Allergy (Verified 08/30/23 14:27) Unknown Review of Systems Review of systems same as previous: Yes (NO CHANGE) Physical Exam Vital signs obtained and entered by: MATTHEW Martinez MA Blood Pressure: 118/72 (LEFT ARM) Cuff size: regular Heart Rate: 62 O2 Saturation: 97 Height: 6 ft 4 in Weight: 275 lb 3.2 oz Body Mass Index: 33.5 BMI Classification: Obese Impression and Plan 1. Obstructive Sleep Apnea-Hypopnea Syndrome, mild, with good treatment compliance and good apnea control. On CPAP therapy, the patient has better sleep quality and is more rested overall. Patient has significant improvement of their sleep apnea and is satisfied with current CPAP therapy. Patient denies problems with oral dryness, nasal congestion, epistaxis, skin irritation or aerophagia. Patient's apnea severity and rationale for treatment to reduce apnea, improve sleep quality and reduce cardiovascular and cerebrovascular events was reviewed. 2. Obesity, unspecified. Currently patients BMI is 33.5. Obesity increases the risk of apnea, CPAP pressure requirements and overall health risks especially cardiovascular and diabetes. Thus patient is advised to lose weight. * Continue auto CPAP pressure at 5-9 cmH2O * Update supply prescription * Notify me if snoring with mask or feeling that the pressure is too much or too little * Attempt to lose weight * Call this office if any problems using CPAP * Return for follow up in 1 year, or sooner if concerns arise Counseling Topics: Spare mask, Weight loss health impact Prescriptions: Device supplies Follow up with Sleep Care in: 1 year Visit Type: In Office Time Spent with Patient (minutes): 20 Provider Statement: I spent 100% of the Face to Face Visit with the patient with greater than 50% spent counseling the patient and coordination of care.
[2023-08-31 15:43] VITALS: BP 118/72; O2SAT 97
== END 2023-08-31 14:47 | disposition home or self-care (01) ==
LOC: SC 14:46
PROVIDERS: ATTEND Nurse Practitioner Family
DX: G47.33 Obstructive sleep apnea (adult) (pediatric) (principal); E66.9 Obesity, unspecified; Z68.33 Body mass index [BMI] 33.0-33.9, adult
CPT/HCPCS: 99212; 99213